=== PATIENT | male | born 1950 | race African-American/Black ===

== ENCOUNTER → 2019-01-25 | Outpatient (CLI) | payer MEDICARE ==
[2014-10-08 11:20] VITALS: BP 172/94
[~2019-01-25] MED LIST: ASPI-482 PO; GLIP10TA13 PO; METF10007 PO; METO50TA6 PO; SPIR25TA5 PO; TAMS0.4C2 PO
--- NOTE | 2019-01-25 13:26 | RAD ---
Bilateral lower extremity arterial duplex exam 01/25/2019 INDICATION: Bilateral foot pain. Peripheral vascular disease COMPARISON STUDY: None available Discussion: Ultrasound evaluation of the major arteries of the bilateral lower extremities was performed including color Doppler imaging spectral analysis. Right lower extremity: Diffuse atherosclerotic vascular disease is seen. The common femoral artery is calcified but patent. Visualized profunda artery appears to be patent. Within the mid to distal right superficial femoral artery there is a focal elevation of velocities from 83 to 225 cm/s consistent with hemodynamically significant stenosis. There is a drop in velocities and shift to blunted waveforms in the popliteal artery. All 3 tibial vessels appear somewhat calcified but grossly patent. Left lower extremity: Diffuse aphthous chronic vascular disease is noted. Left common femoral artery is grossly patent. Left profunda artery is patent. The superficial femoral and popliteal artery are grossly patent. All 3 tibial vessels appear grossly patent. IMPRESSION: 1.Focal elevation of velocity in the distal right SFA suggestive of hemodynamically significant stenosis.Consider CT or conventional angiography as clinically indicated. 2. Diffuse atherosclerotic vascular disease without evidence of focal hemodynamically significant stenosis involving the left lower extremity Electronically signed by: Alex Johnson MD (01/25/2019 1:23 PM) [id number]
== END | disposition home or self-care (01) ==
LOC: US 15:24
PROVIDERS: ATTEND Internal Medicine
DX: I70.293 Other atherosclerosis of native arteries of extremities, bilateral legs (principal); Z79.1 Long term (current) use of non-steroidal anti-inflammatories (NSAID); Z79.84 Long term (current) use of oral hypoglycemic drugs; Z79.891 Long term (current) use of opiate analgesic; Z79.899 Other long term (current) drug therapy
CPT/HCPCS: 93925

== ENCOUNTER 2019-12-30 20:20 | Emergency (ER) | payer MEDICARE ==
[~2019-12-30] VITALS: Ht 182.9 cm; Wt 91.0 kg
[2019-12-30 21:17] LABS: BASO # 0.1 x10^3/uL (0.0-0.2); BASO % 1 % (0-3); EOS # 0.1 x10^3/uL (0.0-0.7); EOS % 1 % (0-3); HEMATOCRIT 36.4 % (39.0-53.0); HEMOGLOBIN 12.4 g/dL (13.0-17.5); LYMPH # 1.7 x10^3/uL (1.0-4.8); LYMPH % 25 % (24-48); MEAN CORPUSCULAR HEMOGLOBIN 29 pg (25-35); MEAN CORPUSCULAR HGB CONC 34 g/dL (31-37); MEAN CORPUSCULAR VOLUME 86 fL (79-100); MONO # 0.9 x10^3/uL (0.0-1.1); MONO % 13 % (0-9); NEUT % 60 % (31-73); PLATELET COUNT 271 x10^3/uL (140-400); RED BLOOD COUNT 4.22 x10^6/uL (4.30-5.70); WHITE BLOOD COUNT 6.8 x10^3/uL (4.0-11.0)
[2019-12-30 21:27] LABS: PROTHROMBIN TIME PATIENT 15.1 SEC (11.7-14.0)
[2019-12-30 21:29] LABS: CALCIUM 8.9 mg/dL (8.5-10.1); CREATININE 1.3 mg/dL (0.7-1.3); POTASSIUM 3.9 mmol/L (3.5-5.1)
[2019-12-30 21:33] LABS: ALBUMIN 3.5 g/dL (3.4-5.0); ALBUMIN/GLOBULIN RATIO 1.1 (1.0-1.7); TOTAL BILIRUBIN 0.8 mg/dL (0.2-1.0); TOTAL PROTEIN 6.7 g/dL (6.4-8.2)
--- NOTE | 2019-12-30 21:48 | RAD ---
EXAM: CT HEAD WITHOUT CONTRAST. HISTORY: Headache and dizziness. TECHNIQUE: Computed tomography of the head was performed without intravenous contrast. One or more of the following individualized dose reduction techniques were utilized for this examination: 1. Automated exposure control. 2. Adjustment of the mA and/or kV according to patient size. 3. Use of iterative reconstruction technique. COMPARISON: None. FINDINGS: There is no intracranial hemorrhage. Rosas-white differentiation is preserved. Prominence of the lateral ventricles and hemispheric sulci indicates mild atrophy. The visualized paranasal sinuses appear clear. The orbits are unremarkable. The temporal bones are unremarkable. The calvarium reveals no suspicious lesions. IMPRESSION: 1. No acute intracranial findings. Electronically signed by: Fernando Hackett MD (12/30/2019 9:45 PM) [facility]
--- NOTE | 2019-12-30 21:49 | RAD ---
EXAM: CHEST ONE VIEW. HISTORY: Cough and fever. COMPARISON: 10/15/2015. FINDINGS: A frontal view of the chest is obtained. There are no confluent infiltrates. There is no pneumothorax or pleural effusion. The heart is not enlarged. IMPRESSION: 1. No confluent infiltrates. Electronically signed by: Fernando Hackett MD (12/30/2019 9:46 PM) [facility]
--- NOTE | 2019-12-30 22:18 | PHYS DOC ---
Past Medical History Past Medical History: Diabetes-Type II, GERD, Hypertension Past Surgical History: Other Additional Past Surgical Histo: LEF TACHILLES TENDON REPAIR Smoking Status: Former Smoker Alcohol Use: Rarely Drug Use: None General Adult EDM: Chief Complaint: FEVER HPI: HPI: Patient is a 69 year old male who present to ER for evaluation of fever, body ache, muscle pain, facial pain for a week. Patient denied of abdominal pain, no nausea vomiting, no neck pain, no cough or trouble breathing. Patient denies any chest pain. Patient said he checked the Temperature at home and it was 103 degree, he took some Tylenol before came into the hospital. Patient denies being exposed to anybody who tested positive for COVID-19. Patient had not get the flu shot this year. Patient also complained of sinus congestion, facial pain. Review of Systems: Review of Systems: Constitutional: Positive for fever and chills. [] Eyes: Denies change in visual acuity. [] HENT: Positive for nasal congestion, no sore throat. [] Respiratory: Denies cough or shortness of breath. [] Cardiovascular: Denies chest pain or edema. [] GI: Denies abdominal pain, nausea, vomiting, bloody stools or diarrhea. [] : Denies dysuria. [] Musculoskeletal: Denies back pain or joint pain. [] Integument: Denies rash. [] Neurologic: Positive for headache, no focal weakness or sensory changes. [] Endocrine: Denies polyuria or polydipsia. [] Lymphatic: Denies swollen glands. [] Psychiatric: Denies depression or anxiety. [] Heart Score: Risk Factors: Risk Factors: DM, Current or recent (<one month) smoker, HTN, HLP, family history of CAD, obesity. Risk Scores: Score 0 - 3: 2.5% MACE over next 6 weeks - Discharge Home Score 4 - 6: 20.3% MACE over next 6 weeks - Admit for Clinical Observation Score 7 - 10: 72.7% MACE over next 6 weeks - Early Invasive Strategies Allergies: Allergies: Allergies Coded Allergies Type Severity Reaction Last Updated Verified No Known Drug Allergies 10/08/14 No Physical Exam: PE: Constitutional: Well developed, well nourished, no acute distress, non-toxic appearance. [] HENT: Normocephalic, atraumatic, bilateral external ears normal, oropharynx moist, no oral exudates, nose normal. Right side facial and maxillary sinuses tender to palpation. Eyes: PERRLA, EOMI, conjunctiva normal, no discharge. [] Neck: Normal range of motion, no tenderness, supple, no stridor. No nuchal rigidity, no meningeal signs. Cardiovascular:Heart rate regular rhythm, no murmur [] Lungs & Thorax: Bilateral breath sounds clear to auscultation [] Abdomen: Bowel sounds normal, soft, no tenderness, no masses, no pulsatile mas ses. [] Skin: Warm, dry, no erythema, no rash. [] Back: No tenderness, no CVA tenderness. [] Extremities: No tenderness, no cyanosis, no clubbing, ROM intact, no edema. [] Neurologic: Alert and oriented X 3, normal motor function, normal sensory function, no focal deficits noted. [] Psychologic: Affect normal, judgement normal, mood normal. [] Current Patient Data: Labs: Laboratory Tests Test 12/30/19 21:00 White Blood Count 6.8 x10^3/uL (4.0-11.0) Red Blood Count 4.22 x10^6/uL (4.30-5.70) L Hemoglobin 12.4 g/dL (13.0-17.5) L Hematocrit 36.4 % (39.0-53.0) L Mean Corpuscular Volume 86 fL (79-100) Mean Corpuscular Hemoglobin 29 pg (25-35) Mean Corpuscular Hemoglobin Concent 34 g/dL (31-37) Red Cell Distribution Width 15.0 % (11.5-14.5) H Platelet Count 271 x10^3/uL (140-400) Neutrophils (%) (Auto) 60 % (31-73) Lymphocytes (%) (Auto) 25 % (24-48) Monocytes (%) (Auto) 13 % (0-9) H Eosinophils (%) (Auto) 1 % (0-3) Basophils (%) (Auto) 1 % (0-3) Neutrophils # (Auto) 4.0 x10^3/uL (1.8-7.7) Lymphocytes # (Auto) 1.7 x10^3/uL (1.0-4.8) Monocytes # (Auto) 0.9 x10^3/uL (0.0-1.1) Eosinophils # (Auto) 0.1 x10^3/uL (0.0-0.7) Basophils # (Auto) 0.1 x10^3/uL (0.0-0.2) Prothrombin Time 15.1 SEC (11.7-14.0) H Prothrombin Time INR 1.2 (0.8-1.1) H Activated Partial Thromboplast Time 26 SEC (24-38) Sodium Level 135 mmol/L (136-145) L Potassium Level 3.9 mmol/L (3.5-5.1) Chloride Level 98 mmol/L (98-107) Carbon Dioxide Level 28 mmol/L (21-32) Anion Gap 9 (6-14) Blood Urea Nitrogen 14 mg/dL (8-26) Creatinine 1.3 mg/dL (0.7-1.3) Estimated GFR (Cockcroft-Gault) 66.0 BUN/Creatinine Ratio 11 (6-20) Glucose Level 295 mg/dL (70-99) H Lactic Acid Level 1.8 mmol/L (0.4-2.0) Calcium Level 8.9 mg/dL (8.5-10.1) Total Bilirubin 0.8 mg/dL (0.2-1.0) Aspartate Amino Transferase (AST) 16 U/L (15-37) Alanine Aminotransferase (ALT) 30 U/L (16-63) Alkaline Phosphatase 65 U/L (46-116) Troponin I Quantitative 0.021 ng/mL (0.000-0.055) Total Protein 6.7 g/dL (6.4-8.2) Albumin 3.5 g/dL (3.4-5.0) Albumin/Globulin Ratio 1.1 (1.0-1.7) Lipase 108 U/L (73-393) Laboratory Tests 12/30/19 21:00 Laboratory Tests 12/30/19 21:00 Vital Signs: Vital Signs Date Time Temp Pulse Resp B/P (MAP) Pulse Ox O2 Delivery O2 Flow Rate FiO2 12/30/19 20:40 98.4 106 22 145/74 (97) 98 Room Air 98.4 EKG: EKG: EKG was done at 2107 heart rate of 100 bpm, sinus rhythm, no ST segment elevation. Radiology/Procedures: Radiology/Procedures: [][facility] [address] [place] [address] IMAGING REPORT Signed PATIENT: CHALO CUIREL ACCOUNT: [id number] : 1950 LOCATION: ER AGE: 69 SEX: M EXAM STATUS: REG ER ORD. PHYSICIAN: CECI TREJO DO REASON: fever, cough PROCEDURE: PORTABLE CHEST 1V EXAM: CHEST ONE VIEW. HISTORY: Cough and fever. COMPARISON: 10/15/2015. FINDINGS: A frontal view of the chest is obtained. There are no confluent infiltrates. There is no pneumothorax or pleural effusion. The heart is not enlarged. IMPRESSION: 1. No confluent infiltrates. Electronically signed by: Fernando Hackett MD (12/30/2019 9:46 PM) [facility] DICTATED and SIGNED BY: ABBI HACKETT MD DATE: 12/30/192145 [address] [address] IMAGING REPORT Signed PATIENT: CHALO CURIEL ACCOUNT: [id number] : 1950 LOCATION: ER AGE: 69 SEX: M EXAM STATUS: REG ER ORD. PHYSICIAN: CECI TREJO DO REASON: HEADACHE AND DIZZINESS FOR A WEEK PROCEDURE: CT HEAD WO CONTRAST EXAM: CT HEAD WITHOUT CONTRAST. HISTORY: Headache and dizziness. TECHNIQUE: Computed tomography of the head was performed without intravenous contrast. One or more of the following individualized dose reduction techniques were utilized for this examination: 1. Automated exposure control. 2. Adjustment of the mA and/or kV according to patient size. 3. Use of iterative reconstruction technique. COMPARISON: None. FINDINGS: There is no intracranial hemorrhage. Rosas-white differentiation is preserved. Prominence of the lateral ventricles and hemispheric sulci indicates mild atrophy. The visualized paranasal sinuses appear clear. The orbits are unremarkable. The temporal bones are unremarkable. The calvarium reveals no suspicious lesions. IMPRESSION: 1. No acute intracranial findings. Electronically signed by: Fernando Hackett MD (12/30/2019 9:45 PM) [facility] DICTATED and SIGNED BY: ABBI HACKETT MD DATE: 12/30/192144 Course & Med Decision Making: Course & Med Decision Making Pertinent Labs and Imaging studies reviewed. (See chart for details) Patient is an 86-year-old male who was evaluated in ER due to body ache, fever and chill, headache, joint pain. Work-up in ER did not find a problem. Patient was tested for COVID-19, results pending at this time. We will discharge him home with COVID-19 information. Patient is amenable to plan of care. Dragon Disclaimer: Dragon Disclaimer: This electronic medical record was generated, in whole or in part, using a voice recognition dictation system. Departure Departure Impression: Primary Impression: Viral syndrome Additional Impression: Person under investigation for COVID-19 Disposition: 01 DC HOME SELF CARE/HOMELESS Condition: IMPROVED Referrals: ELAINE BYRD MD (PCP) follow up with your doctor as needed. Patient Instructions: Viral Syndrome Additional Instructions: You have been tested for or diagnosed with COVID-19. It is an infection caused by a new type of coronavirus. COVID-19 will cause cold-like or mild flu symptoms in most. It can cause more severe symptoms like problems breathing in some. There is no treatment for COVID-19. The body will clear the infection over time. Self-care will help to ease discomfort. Steps to Take: Self-Care Rest as needed. Healthy habits may help you feel better. Steps include: Choose healthy foods including fruits and vegetables. Drink water throughout the day. Get plenty of sleep each night. If you smoke, try to quit. It may ease breathing. Avoid alcohol. Keep Others Healthy The virus can spread to others. Droplets are released every time you sneeze or cough. The droplets can get into the mouth, nose, or eyes of people near you and lead to infection. To lower the chances of spreading COVID-19 to others: Stay at home until your doctor has said it is safe to leave. If you tested positive this will mean staying isolated until both of the following are true: At least 7 days have passed since the start of illness. You are free of fever for at least 72 hours without the use of medicine. During this time: - Avoid public areas, events, or transportation. Do not return to work or school until your doctor has said it is safe to do so. - Call ahead if you need to go to a medical center. Let them know you may have COVID-19. It will help them guide you where to go. They may also ask you to wear a facemask when you come to the office. - If you call for emergency medical services, let them know you may have COVID- 19. While at home: - Try to avoid close contact with others. Stay about 6 feet away. - If possible, spend most of your time in a separate room from others. - Use a face mask if you will be in close contact with others such as sharing a room or vehicle. - Have someone wipe down common surfaces in the home. Use household wine and spirits clerk every day on areas like doorknobs, counters, or sinks. - Cough or sneeze into a tissue. Throw the tissue away right after use. If a tissue is not available, cough or sneeze into your elbow. - Wash your hands often. Wash them after sneezing or coughing. Use soap and water and wash for at least 20 seconds. Alcohol based hand turkey cleaner can be used if soap and water is not available. - Do not prepare food for others. Avoid sharing personal items like forks, spoons, or toothbrushes. - Avoid close contact with pets while you are sick. There is no evidence of the virus passing to pets. This is a safety step until more is known about this virus. Isolation can be frustrating. Social interaction can help. Keep in touch with friends and family through phone and tech options. You can still interact with others in your home, just keep a safe distance of about 6 feet. Follow-up: Your doctors office will check in with you to see if there are any changes in your health. You may be asked to keep track of symptoms to share with them. They will also let you know when you are clear to be in public again. Problems to Look Out For: Contact your doctor if your recovery is not going as you expect. Get emergency care if you have problems such as: - Trouble breathing - Nonstop chest pain or pressure - Changes in awareness, confusion, or problems waking - Lips or face have bluish color - Worsening of symptoms If you think you have an emergency, call for emergency medical services right away. As taken from [facility] CECI Cain DO Dec 30, 2019 22:18
[2019-12-30 22:47] LABS: INFLUENZA A PATIENT NEGATIVE (NEGATIVE); INFLUENZA B PATIENT NEGATIVE (NEGATIVE)
[2019-12-30 23:00] VITALS: BP 156/87
--- NOTE | 2019-12-31 06:03 | EKG ---
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
--- NOTE | 2020-01-01 13:45 | NUR ---
IP: Informed pt of negative COVID test. Pt verbalized understanding. Still c/o of ALARCON and sinus issues. Instructed pt to call PCP or return to the ED if needed.
== END 2019-12-30 23:30 | disposition home or self-care (01) ==
LOC: ER 20:20
DX: B34.9 Viral infection, unspecified (principal); Z20.828 Contact with and (suspected) exposure to other viral communicable diseases; K21.9 Gastro-esophageal reflux disease without esophagitis; I10 Essential (primary) hypertension; E11.9 Type 2 diabetes mellitus without complications; Z87.891 Personal history of nicotine dependence
CPT/HCPCS: 36415; 70450; 71045; 80053; 83605; 83690; 84484; 85025; 85610; 85730; 87040; 87804; 93005; 99285; C9803; U0003

== ENCOUNTER → 2020-07-27 | Day surgery (SDC) | payer MEDICARE ==
[~2020-07-27] MED LIST changes: +ATOR20TA58 PO; +HYDR12.575 PO; +IV RINGERS,LACTATED 1000ML 1,000 ML IV SCH; +LOSA-73 PO; +PIOG30TA41 PO; +PROPOFOL 10 MG/ML (20ML) VIAL. IV ONE
--- NOTE | 2020-07-27 14:27 | PDOC4 ---
PROCEDURE Procedure EGD/biopsies, colonoscopy Indication: chronic heartburn, history of polyps Meds: per anesthesia Findings: E--Irregular z-line at 43. G--Few scattered antral erosions, biopsies taken. D--Normal to second portion. FIOR-- normal. --'Scope advanced to cecum. Prep adequate. Mucosa normal. Scattered diverticula, sigmoid to ascending. No polyps, etc. IH's on retroflex. Robert. well. IMP: Mild reflux esophagitis Antral erosions Diverticulosis Internal hemorrhoids. REC: Resume home meds and diet. Repeat colonoscopy in 5 years. Can f/u in the office prn. ELAINE HALE MD July 27, 2020 14:27
[2020-07-27 14:50] VITALS: BP 141/69
--- NOTE | 2020-07-29 17:13 | PATHOLOGY ---
[facility] Accession Number: [id number] . 01 Material submitted: . stomach - ANTRUM BX . 01 Clinical history: . EGD,COLONOSCOPY HEARTBURN, HX OF POLYPS . 02 Diagnosis: Gastric biopsies, antrum: - Chronic gastritis, mild. (JPM:pit; 07/29/2020) [facility] 07/29/2020 0940 Local . 02 Comment: Sections of the gastric biopsy reveal segments of gastric body and antral/body transition mucosa showing congestion and mild chronic inflammation. A properly controlled immunoperoxidase stain for Helicobacter is negative for Helicobacter organisms. (JPM:pit; 07/29/2020) . Special stain performed: Immunoperoxidase for Helicobacter . 02 Electronically signed: . Carlos Hodges MD, Pathologist NPI- [id number] . 01 Gross description: . The specimen is received in formalin, labeled "Carlos Baig", "antrum biopsy". Received are 2 segments of pale velasco soft tissue measuring 0.2 and 0.5 cm. The specimen is entirely submitted in cassette A1.([facility]; 07/28/2020) [facility] 07/28/2020 0855 Local . 02 Pathologist provided ICD-10: K29.50 . 02 CPT . 487365, [id number] Specimen Comment: A courtesy copy of this report has been sent to [phone], [phone] Specimen Comment: [id number] Specimen Comment: Report sent to / DR BYRD Performed at: 01 [facility] [address], [place], [place] [id number] MD Juan Pope MD Phone: [phone] Performed at: 02 [facility] [address] [place], [place] [id number] MD Carlos Hodges MD Phone: [phone]
== END | disposition home or self-care (01) ==
LOC: ENDOS 12:37
PROVIDERS: ATTEND Internal Medicine Gastroenterology
DX: K59.00 Constipation, unspecified (principal); R12 Heartburn; K57.30 Diverticulosis of large intestine without perforation or abscess without bleeding; K21.00 Gastro-esophageal reflux disease with esophagitis, without bleeding; K64.8 Other hemorrhoids; E11.9 Type 2 diabetes mellitus without complications; E78.00 Pure hypercholesterolemia, unspecified; I10 Essential (primary) hypertension; M19.90 Unspecified osteoarthritis, unspecified site; F17.210 Nicotine dependence, cigarettes, uncomplicated; Z72.89 Other problems related to lifestyle; Z86.010 Personal history of colon polyps; Z88.5 Allergy status to narcotic agent; Z79.899 Other long term (current) drug therapy; Z79.82 Long term (current) use of aspirin; Z79.84 Long term (current) use of oral hypoglycemic drugs
CPT/HCPCS: 43239; 45378; 87426; J2704